=== PATIENT | male | born 1970 | race Two or more races ===

== ENCOUNTER 2017-09-02 08:40 | Inpatient (IN) | payer OTHER ==
[~2017-09-02] VITALS: Ht 182.9 cm; Wt 153.5 kg
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
[2017-09-02] MEDS ORDERED: IV NS 0.9% 1,000 ML IV ONE (09:00)
--- NOTE | 2017-09-02 09:05 | NUR ---
NEW IV STARTED ON LAC, 20 G. BLOOD DRAWN AND SENT TO LAB.
[2017-09-02 09:23] LABS: BASOPHILS % (AUTO) 0.5 % (0.0-2.0); EOSINOPHILS # (AUTO) 0.1 /CMM (0.0-0.7); EOSINOPHILS % (AUTO) 1.2 % (0.0-6.0); HEMATOCRIT 42 % (39-51); HEMOGLOBIN 14.4 g/dL (13.5-17.5); LYMPHOCYTES % (AUTO) 15.2 % (20.0-44.0); MEAN CORPUSCULAR HEMOGLOBIN 29 PG (26.0-33.0); MEAN CORPUSCULAR HGB CONC 34 g/dl (31.0-36.0); MEAN CORPUSCULAR VOLUME 84 fL (80-96); MONOCYTES # (AUTO) 0.6 /CMM (0.1-1.30); MONOCYTES % (AUTO) 8.8 % (2.0-12.0); NEUTROPHILS # (AUTO) 4.7 /CMM (1.8-8.9); NEUTROPHILS % (AUTO) 74.3 % (43.0-81.0); PLATELET COUNT (AUTO) 295 /CMM (150-450); RDW COEFFICIENT OF VARIATION 14.1 (11.5-15.0); RED BLOOD CELL COUNT(AUTO) 5.02 MIL/uL (4.5-6.0); WHITE BLOOD COUNT (AUTO) 6.4 K/uL (4.3-11.0)
--- NOTE | 2017-09-02 09:30 | NUR ---
PATIENT TAKEN TO RADIOLOGY VIA STRETCHER.
[2017-09-02 09:32] LABS: ALANINE AMINOTRANSFERASE 77 U/L (12-78); ALBUMIN 3.6 g/dL (3.4-5.0); ALCOHOL, BLOOD < 3 mg/dL (0-0); ALKALINE PHOSPHATASE 96 U/L (46-116); ASPARTATE AMINOTRANSFERASE 42 U/L (15-37); BILIRUBIN,DIRECT 0.1 mg/dL (0.0-0.2); BILIRUBIN,TOTAL 0.5 mg/dL (0.2-1.0); CALCIUM, SERUM 8.6 mg/dL (8.5-10.1); CARBON DIOXIDE 26 mmol/L (21-32); CHLORIDE 106 mmol/L (98-107); CREATININE 1.2 mg/dL (0.6-1.3); GLUCOSE 110 mg/dL (74-106); POTASSIUM 3.7 mmol/L (3.5-5.1); SODIUM SERUM 142 mmol/L (136-145); TOTAL PROTEIN, SERUM 7.3 g/dL (6.4-8.2); UREA NITROGEN, BLOOD 24 mg/dL (7-18)
[2017-09-02 09:34] LABS: ACETAMINOPHEN 0 ug/ml (10-30); SALICYLATE 1.1 mg/dL (2.8-20.0)
--- NOTE | 2017-09-02 09:50 | NUR ---
PATIENT RETURNED FROM RADIOLOGY IN STABLE CONDITION.
[2017-09-02 11:06] LABS: APPEARANCE,URINE Clear (CLEAR); BILIRUBIN,URINE Negative (NEGATIVE); BLOOD, URINE Trace-intact Ery/uL (NEGATIVE); COLOR,URINE Yellow (YELLOW); KETONES,URINE Negative (NEGATIVE); LEUKOCYTE ESTERASE ,URINE Negative (NEGATIVE); NITRITE, URINE Negative (NEGATIVE); PH,URINE 6.5 (5.0-8.0); PROTEIN,URINE 30 mg/dl (NEGATIVE); UGLUCOSE Negative (NEGATIVE); UROBILINOGEN,URINE 0.2 EU/dL (0.2)
[2017-09-02 11:13] LABS: BACTERIA,URINE None seen /HPF (None Seen); SQUAMOUS EPITHELIAL CELL,UR Few /HPF (None Seen); WBC,URINE 0-2 /HPF (0-3)
--- NOTE | 2017-09-02 11:55 | NUR ---
PAGED [employer] [facility] (DR. AMATO)
--- NOTE | 2017-09-02 12:36 | NUR ---
CALLED NURSING SUPLIT FOR BED.
--- NOTE | 2017-09-02 12:37 | NUR ---
PAGED EPIC FOR PANEL
[2017-09-02] MEDS ORDERED: CLON2TAB4 PO (12:50)
[2017-09-02] MEDS ORDERED: BUPR-51 PO (12:50)
[2017-09-02] MEDS ORDERED: MIRT15TA7 PO (12:50)
[2017-09-02] MEDS ORDERED: ALPR2TAB7 PO (12:50)
[2017-09-02] MEDS ORDERED: DEXT30TA10 PO (12:50)
[2017-09-02] MEDS ORDERED: LAMO200T2 PO (12:50)
[2017-09-02] MEDS ORDERED: ZOLPIDEM TARTRATE 5 MG TABLET PO PRN ×2 (13:00→14:00)
[2017-09-02] MEDS ORDERED: MORPHINE SULFATE INJ 2 MG/ML DISP.SYRIN IV PRN (13:00)
[2017-09-02] MEDS ORDERED: MAGNESIUM HYDROXIDE 30 ML UDC PO PRN ×2 (13:00→14:00)
[2017-09-02] MEDS ORDERED: MAG HYDROX/AL HYDROX/SIMETH 30 ML UDC PO PRN ×2 (13:00→14:00)
[2017-09-02] MEDS ORDERED: ACETAMINOPHEN 325 MG TABLET PO PRN ×2 (13:00→14:00)
[2017-09-02] MEDS ORDERED: HYDROCODONE/APAP 5/325MG 1 EACH TABLET PO PRN ×2 (13:00→14:00)
[2017-09-02] MEDS ORDERED: Z GUARD REMEDY 2 OZ OINT TP PRN ×2 (13:00→14:00)
[2017-09-02] MEDS ORDERED: ONDANSETRON HCL/PF 4 MG/2 ML VIAL IVP PRN ×2 (13:00→14:00)
[2017-09-02] MEDS ORDERED: HYDROCODONE/APAP 10/325MG 1 EA TABLET PO PRN ×2 (13:00→14:00)
--- NOTE | 2017-09-02 13:22 | NUR ---
[id number] [facility]
--- NOTE | 2017-09-02 13:29 | NUR ---
REPORT GIVEN TO ISIAH SANTIAGO FOR RENE UPON ADMISSION.
[2017-09-02] MEDS ORDERED: ONDANSETRON HCL/PF - ER 4 MG/2 ML VIAL IV ONE (13:30)
[2017-09-02] MEDS ORDERED: HYDROMORPHONE 1 MG/1 ML DISP.SYRIN IV ONE (13:30)
--- NOTE | 2017-09-02 13:35 | NUR ---
RN NOTES ADMISSION RECEIVE PT. IN BED A&OX4, IN MEDICALLY STABLE CONDITION. WILL ASSESS AND MONITOR.
--- NOTE | 2017-09-02 13:49 | NUR ---
PATIENT TRANSPORTED TO [facility] VIA STRETCHER. RNISIAH TO PROVIDE RENE.
[2017-09-02 13:55] VITALS: BP 142/84
--- NOTE | 2017-09-02 14:30 | NUR ---
TEXTED DR. DICKINSON FOR MRI APPROVAL.
[2017-09-02] MEDS ORDERED: ALPRAZOLAM 1 MG TABLET PO PRN (15:00)
[2017-09-02 16:00] VITALS: BP 126/73
[2017-09-02] MEDS: HYDROMORPHONE INJ 0.5 MG/0.5 ML SYRINGE IV PRN (18:49)
--- NOTE | 2017-09-02 19:40 | NUR ---
MS/RN NOTES RECEIVED PT. LYING FLAT IN BED. AWAKE, ALERT AND ORIENTED X3. BREATHING EVEN AND UNLABORED ON ROOM AIR. NO SOB, RESPIRATORY DISTRESS OR COMPLAINTS OF PAIN NOTED AT THIS TIME. PT. RECENTLY RECEIVED PAIN MEDICATION AND STATED THAT IT HELPED A LOT. PT. WITH LEFT AC 20 GAUGE IV SALINE LOCK PRESENT, PATENT AND INTACT. PT. RIGHT WRIST HANDCUFFED TO THE SIDE RAIL, TWO POLICE OFFICERS PRESENT AT BEDSIDE. PER DAYSHIFT NURSE PT. HAS L2 STABLE BURST FRACTURE AND PER MD ORDERS NEEDS TO REMAIN IN ALIGNMENT AND IS TO BE TURNED USING THE LOG ROLL METHOD. BED LOCKED AND IN LOWEST POSITION, SIDE RAILS UP X2, BED ALARM ON, CALL LIGHT WITHIN REACH, WILL CONTINUE TO MONITOR.
[2017-09-02 20:00] VITALS: BP 119/74
--- NOTE | 2017-09-02 20:02 | NUR ---
RN CLOSING NOTES 2 OFFICERS ARE AT BEDSIDE. PT. IS IN BED A&OX4. BREATHING UNLABORED, AND EVENLY ON ROOM AIR. PT. IS WEARING A HAND CUFF ON RIGHT WRIST. NO S/S OF ACUTE DISTRESS. IV ACCESS IS INTACT AND PATENT ON LEFT ANTECUBITAL SITE. URINAL IS AT BEDSIDE. 500 CC OF CLEAR, AND YELLOW URINE OUTPUT. BED IS IN LOWEST, AND LOCKED POSITION. 2 SIDE RAILS UP, AND CALL LIGHT IS WITHIN REACH. ALL NEEDS MET. WILL ENDORSE REPORT TO NURSE.
--- NOTE | 2017-09-02 21:40 | NUR ---
MS/RN NOTES UNABLE TO PERFORM FULL SKIN ASSESSMENT. PT. IS REFUSING BODY CHECK/PICTURES DUE TO PAIN WHEN REPOSITIONING. WILL CONTINUE TO MONITOR.
[2017-09-02] MEDS: MIRTAZAPINE 15 MG TABLET PO SCH (21:49)
[2017-09-02] MEDS: LamoTRIgine 100 MG TABLET PO SCH (21:50)
[2017-09-02] MEDS ORDERED: MIRTAZAPINE 15 MG TABLET PO SCH (22:00)
[2017-09-03] MEDS: HYDROMORPHONE INJ 0.5 MG/0.5 ML SYRINGE IV PRN ×4 (00:20→19:56)
--- NOTE | 2017-09-03 06:16 | NUR ---
MS/RN NOTES PT. IS LYING IN BED RESTING. BREATHING EVEN AND UNLABORED ON ROOM AIR. NO SOB, RESPIRATORY DISTRESS OR COMPLAINTS OF PAIN NOTED AT THIS TIME. PT. WITH LEFT AC 20 GAUGE IV SALINE LOCK PRESENT, PATENT AND INTACT. PT. LEFT WRIST HANDCUFFED TO THE SIDE RAIL, TWO POLICE OFFICERS PRESENT AT BEDSIDE. ALL PT. NEEDS MET. BED LOCKED AND IN LOWEST POSITION, SIDE RAILS UP X2, BED ALARM ON, CALL LIGHT WITHIN REACH, WILL ENDORSE TO DAYSHIFT NURSE FOR CONTINUITY OF CARE.
--- NOTE | 2017-09-03 07:10 | NUR ---
ms rn initial notes Received patient in bed, awake, head of bed elevated, no SOB or distress noted, on room air and tolerated well. IV intact and patent, HL only. Patient is in police custody, patient left hand with handcuff, circulation checked and WNL. Alert and oriented x 3, verbally responsive and able to make needs known. Kept patient clean and comfortable in bed, call light within patient reach, will continue to monitor accordingly.
[2017-09-03 08:00] VITALS: BP 124/53
[2017-09-03] MEDS: LamoTRIgine 100 MG TABLET PO SCH ×2 (08:40→22:13)
[2017-09-03] MEDS: BUPROPION XL 150 MG TAB.ER.24 PO SCH (08:40)
[2017-09-03] MEDS ORDERED: BUPROPION XL 150 MG TAB.ER.24 PO SCH (09:00)
[2017-09-03 16:00] VITALS: BP 142/77
--- NOTE | 2017-09-03 16:30 | NUR ---
ms rn notes Discharge order received from Dr. Masoud lopez to discharge patient under police custody. Discontinued IV access with safety instruction police officer presence. All orders carried out and noted.
--- NOTE | 2017-09-03 17:10 | NUR ---
ms rn notes Dr. Ely came seen and examined the patient and saw the TLSO back brace on the patient and said that "that is not the TLSO back brace that i want the patient to have, that is wrong, i want aspen TLSO". Progress note from MD does not say aspen TLSO. Charge nurse made aware. Ordered aspen TLSO from the ortho company and delivered but doesn't fit on the patient. Called another ortho company for [employer] TLSO and waiting for call back for the ETA. Informed officer assigned to the patient at bedside and made aware about TLSO aspen order. Will continue to monitor accordingly.
--- NOTE | 2017-09-03 19:14 | NUR ---
ms rn closing notes All needs provided, attended, and anticipated, kept patient clean and comfortable in bed, [employer] launch commander at bedside for constant monitoring. Endorsed to next shift RN to continue care.
--- NOTE | 2017-09-03 19:20 | NUR ---
MS/RN NOTES RECEIVED PT. LYING IN BED. AWAKE, ALERT AND ORIENTED X3. BREATHING EVEN AND UNLABORED ON ROOM AIR. NO SOB, RESPIRATORY DISTRESS OR COMPLAINTS OF PAIN NOTED AT THIS TIME. PT. WITH RIGHT AC 22 GAUGE IV SALINE LOCK PRESENT, PATENT AND INTACT. PT. LEFT WRIST HANDCUFFED TO THE SIDE RAIL, TWO POLICE OFFICERS PRESENT AT BEDSIDE. BED LOCKED AND IN LOWEST POSITION, SIDE RAILS UP X2, BED ALARM ON, CALL LIGHT WITHIN REACH, WILL CONTINUE TO MONITOR.
[2017-09-03 20:00] VITALS: BP 127/82
[2017-09-03] MEDS: MIRTAZAPINE 15 MG TABLET PO SCH (22:13)
[2017-09-04] MEDS: HYDROMORPHONE INJ 0.5 MG/0.5 ML SYRINGE IV PRN ×3 (03:02→11:43)
--- NOTE | 2017-09-04 06:11 | NUR ---
MS/RN NOTES PT. IS LYING IN BED RESTING. BREATHING EVEN AND UNLABORED ON ROOM AIR. NO SOB, RESPIRATORY DISTRESS OR COMPLAINTS OF PAIN NOTED AT THIS TIME. PT. WITH RIGHT AC 22 GAUGE IV SALINE LOCK PRESENT, PATENT AND INTACT. PT. LEFT WRIST HANDCUFFED TO THE SIDE RAIL, TWO POLICE OFFICERS PRESENT AT BEDSIDE. ALL PT. NEEDS MET. PT. IS AWAITING [place] TLSO BRACE TODAY. BED LOCKED AND IN LOWEST POSITION, SIDE RAILS UP X2, BED ALARM ON, CALL LIGHT WITHIN REACH, WILL ENDORSE TO DAYSHIFT NURSE FOR CONTINUITY OF CARE.
--- NOTE | 2017-09-04 07:10 | NUR ---
ms rn initial notes Received patient in bed, awake, head of bed elevated, no SOB or distress noted, on room air and tolerated well. Patient complaint of pain and pain medication given. IV on the right AC intact and patent HL only. Police officers at bedside for constant monitoring, patient is under the police custody. Call light with in patient reach, will continue to monitor accordingly.
[2017-09-04 08:00] VITALS: BP_SYST 141; BP_DIAS 59; BP_DIAS 89
[2017-09-04] MEDS: LamoTRIgine 100 MG TABLET PO SCH (08:39)
[2017-09-04] MEDS: BUPROPION XL 150 MG TAB.ER.24 PO SCH (08:39)
[2017-09-04] MEDS ORDERED: HYDR-3972 PO (10:48)
--- NOTE | 2017-09-04 11:45 | NUR ---
ms director e learning notes Discharge instructions given to patient and able to understand instructions. Signed discharge paper and belonging list by police inspector assigned, no items missing. Patient is alert and oriented x 3, verbally responsive and able to make needs known. discontinued IV and pressured applied. [place] back brace on and informed to put it on all the time when ambulating and amenable. Skin intact, flu vaccine and pneumonia vaccine not given due to refusal. Explained the risk and benefits x 3 and still refused. Vital signs checked and recorded. Patient left the hospital under the police custody via wheelchair accompanied by 4 police officers in stable condition. Cleared by Dr. Ely and Dr. Pond for discharge. MD and charge nurse made aware.
== END 2017-09-04 11:55 | DRG 347 ==
LOC: ER 08:41 → MED 14:40
PROVIDERS: ADMIT Internal Medicine; ATTEND Internal Medicine
DX: S32.021A Stable burst fracture of second lumbar vertebra, initial encounter for closed fracture (principal); E43 Unspecified severe protein-calorie malnutrition; V49.9XXA Car occupant (driver) (passenger) injured in unspecified traffic accident, initial encounter; Y93.89 Activity, other specified; E88.09 Other disorders of plasma-protein metabolism, not elsewhere classified; E66.01 Morbid (severe) obesity due to excess calories; Z68.42 Body mass index [BMI] 45.0-49.9, adult; Y92.411 Interstate highway as the place of occurrence of the external cause; Y99.9 Unspecified external cause status; M12.88 Other specific arthropathies, not elsewhere classified, other specified site; M48.07 Spinal stenosis, lumbosacral region
CPT/HCPCS: 36415; 72074-TC; 72080-TC; 72100-TC; 72128-TC; 72131-TC; 80048-TC; 80076-TC; 80305; 81000-TC; 85025-TC; 87081-TC; A4606; G0480; J2405; J7030; Z7610